=== PATIENT | male | born 1950 | race Caucasian/White ===

== ENCOUNTER 2017-03-18 15:44 | Inpatient (IN) | payer MEDICARE ==
[~2017-03-18] VITALS: Ht 175.3 cm; Wt 55.9 kg
[~2017-03-18 15:44] MED LIST: ATOR10TA9 PO
[2017-03-18] MEDS ORDERED: SODIUM CHLORIDE FLUSH 10ML SYR IVF ONE (16:00)
[2017-03-18] MEDS ORDERED: SODIUM CHLORIDE 0.9% 1,000ML IVBOLUS ONE (16:00)
[2017-03-18] MEDS ORDERED: SODIUM CHLORIDE 0.9% 1,000 ML IV ONE (16:20)
[2017-03-18 16:33] LABS: BLOOD UREA NITROGEN 10 mg/dL (7-18)
[2017-03-18 16:47] LABS: ASPARTATE AMINO TRANSFERASE 521 U/L (15-37)
[2017-03-18] MEDS ORDERED: POLY17PO5 PO (16:55)
[2017-03-18 17:18] LABS: DIFF TOTAL CELLS COUNTED 100 CELL DIFF
[2017-03-18 17:25] LABS: ANISOCYTOSIS 1+
[2017-03-18 17:27] LABS: POIKILOCYTOSIS 1+; TARGET CELLS 1+
[2017-03-18 17:28] LABS: STOMATOCYTES 1+
[2017-03-18 17:29] LABS: VERIFY COUNTS? YES
[2017-03-18] MEDS: SODIUM CHLORIDE 0.9% 1,000 ML IV SCH (17:42)
[2017-03-18] MEDS ORDERED: LABETALOL 5MG/ML 40ML VIAL IVPush PRN (18:00)
[2017-03-18] MEDS ORDERED: ENOXAPARIN 40 MG/0.4 ML SQ SCH (18:00)
[2017-03-18] MEDS ORDERED: METOCLOPRAMIDE 5 MG/ML, 2ML IVPush PRN (18:00)
[2017-03-18] MEDS ORDERED: BISACODYL 10 MG SUPP PR PRN (18:00)
[2017-03-18] MEDS ORDERED: morphine SULFATE 10 MG/ML, 1ML IVPush PRN (18:00)
[2017-03-18] MEDS ORDERED: PROMETHAZINE 25 MG/ML, 1ML IM PRN (18:00)
[2017-03-18] MEDS ORDERED: ONDANSETRON 2MG/ML, 2ML IVPush PRN (18:00)
[2017-03-18] MEDS ORDERED: OMNIPAQUE 350 MG/ML, 100ML BOTTLE ONE (18:19)
[2017-03-18 20:32] VITALS: BP 171/91
[2017-03-19 00:58] VITALS: BP 134/77
[2017-03-19] MEDS: SODIUM CHLORIDE 0.9% 1,000 ML IV SCH (05:57)
[2017-03-19 06:28] LABS: ASPARTATE AMINO TRANSFERASE 432 U/L (15-37); BLOOD UREA NITROGEN 9 mg/dL (7-18)
[2017-03-19 06:38] LABS: DIFF TOTAL CELLS COUNTED 100 CELL DIFF
[2017-03-19 07:03] LABS: VERIFY COUNTS? YES
[2017-03-19 07:04] LABS: ANISOCYTOSIS 1+; TARGET CELLS 1+
[2017-03-19 08:30] VITALS: BP 130/72
[2017-03-19 13:52] VITALS: BP 138/73
[2017-03-19] MEDS ORDERED: PNEUMOCOCCAL 23 VACCINE IM-VACC ONE (15:30)
== END 2017-03-19 16:00 | disposition home or self-care (01) | DRG 435 ==
LOC: ED 16:19 → EDIP 16:56 → 3NE 18:27
PROVIDERS: ADMIT Internal Medicine; ATTEND Internal Medicine
DX: C25.9 Malignant neoplasm of pancreas, unspecified (principal); K83.1 Obstruction of bile duct; K85.90 Acute pancreatitis without necrosis or infection, unspecified; E87.1 Hypo-osmolality and hyponatremia; D75.89 Other specified diseases of blood and blood-forming organs; E78.00 Pure hypercholesterolemia, unspecified; E78.5 Hyperlipidemia, unspecified; F12.90 Cannabis use, unspecified, uncomplicated; G89.29 Other chronic pain; M54.9 Dorsalgia, unspecified; L28.0 Lichen simplex chronicus; F10.20 Alcohol dependence, uncomplicated; R74.8 Abnormal levels of other serum enzymes; R74.0 Nonspecific elevation of levels of transaminase and lactic acid dehydrogenase [LDH]; I10 Essential (primary) hypertension; Y90.9 Presence of alcohol in blood, level not specified; K59.09 Other constipation; K82.8 Other specified diseases of gallbladder; K86.89 Other specified diseases of pancreas; Z80.0 Family history of malignant neoplasm of digestive organs; Z82.49 Family history of ischemic heart disease and other diseases of the circulatory system; Z87.891 Personal history of nicotine dependence; Z88.8 Allergy status to other drugs, medicaments and biological substances; Z79.899 Other long term (current) drug therapy
CPT/HCPCS: 36415; 74178; 80053; 81003; 82150; 83690; 83735; 84100; 85025; 85610; 90732; 96360; Q9967; J7030

== ENCOUNTER 2017-03-25 05:39 | Day surgery (SDC) | payer MEDICARE ==
[~2017-03-25] VITALS: Ht 175.3 cm; Wt 66.4 kg
[~2017-03-25 05:39] MED LIST changes: +POLY17PO5 PO
[2017-03-25] MEDS ORDERED: LACTATED RINGERS 1,000 ML IV SCH (06:14)
[2017-03-25 06:17] VITALS: BP 118/75
[2017-03-25] MEDS ORDERED: CHLORHEXIDINE MOUTHWASH 15 ML UDC ONE (06:48)
[2017-03-25] MEDS ORDERED: PIPERACILLIN/TAZO/PMX 3.375GM 50 ML ONE (07:09)
[2017-03-25 07:19] LABS: BLOOD UREA NITROGEN 9 mg/dL (7-18)
[2017-03-25] MEDS ORDERED: FENTANYL PF 100 MCG/2ML IV PRN (07:30)
[2017-03-25] MEDS ORDERED: METOCLOPRAMIDE 5 MG/ML, 2ML IV PRN (07:30)
[2017-03-25] MEDS ORDERED: ONDANSETRON 2MG/ML, 2ML IVPush PRN (07:30)
[2017-03-25] MEDS ORDERED: PROMETHAZINE 25 MG/ML, 1ML IV PRN (07:30)
[2017-03-25 07:35] LABS: ASPARTATE AMINO TRANSFERASE 238 U/L (15-37)
[2017-03-25] MEDS ORDERED: PROPOFOL 10 MG/ML, 20ML ONE (07:48)
[2017-03-25] MEDS ORDERED: ROCURONIUM 10 MG/ML ONE (07:48)
[2017-03-25] MEDS ORDERED: SUCCINYLCHOLINE 20 MG/ML, 10ML ONE (07:48)
[2017-03-25] MEDS ORDERED: OMNIPAQUE 350 MG/ML, 50 ML BOTTLE ONE (08:47)
[2017-03-25] MEDS ORDERED: FENTANYL PF 100 MCG/2ML ONE (09:43)
[2017-03-25] MEDS ORDERED: FENTANYL PF 100 MCG/2ML IV ONE (10:00)
[2017-03-25] MEDS ORDERED: OXYcodone/APAP 5/325MG TABLET ONE (10:22)
[2017-03-25] MEDS ORDERED: OXYcodone/APAP 5/325MG TABLET PO ONE (10:30)
== END 2017-03-25 11:00 | disposition home or self-care (01) ==
LOC: OUT 05:39
PROVIDERS: ATTEND Internal Medicine Gastroenterology
DX: C25.0 Malignant neoplasm of head of pancreas (principal); K83.1 Obstruction of bile duct; K31.7 Polyp of stomach and duodenum; K26.9 Duodenal ulcer, unspecified as acute or chronic, without hemorrhage or perforation; K29.50 Unspecified chronic gastritis without bleeding; I10 Essential (primary) hypertension; Z88.3 Allergy status to other anti-infective agents; Z88.8 Allergy status to other drugs, medicaments and biological substances; F12.10 Cannabis abuse, uncomplicated; Z87.891 Personal history of nicotine dependence; Z98.890 Other specified postprocedural states; Z72.89 Other problems related to lifestyle
CPT/HCPCS: 36415; 43238; 43239; 43251; 43274; 74328; 80053; 88172; 88173; 88305; 88307; 93005; C1769; C1894; C2625; J0330; J2543; J2704; J3010; J7120; Q9967

== ENCOUNTER → 2017-04-08 | Outpatient (CLI) | payer MEDICARE | END | disposition home or self-care (01) | LOC: PETCFH 08:44 | PROVIDERS: ATTEND Internal Medicine Hematology & Oncology | DX: C25.3 Malignant neoplasm of pancreatic duct (principal) | CPT/HCPCS: 78815; A9552 ==

== ENCOUNTER 2017-08-02 16:37 | Inpatient (IN) | payer MEDICARE ==
[~2017-08-02] VITALS: Ht 175.3 cm; Wt 58.9 kg
[2017-08-02] MEDS ORDERED: SODIUM CHLORIDE 0.9% 1,000 ML IV ONE (16:59)
[2017-08-02] MEDS ORDERED: SODIUM CHLORIDE 0.9% 1,000ML IVBOLUS ONE (17:00)
[2017-08-02 17:33] LABS: HEMATOCRIT 31.6 % (39.2-51.8); HEMOGLOBIN 10.6 g/dL (13.7-18.0)
[2017-08-02 17:43] LABS: ASPARTATE AMINO TRANSFERASE 158 U/L (15-37); BLOOD UREA NITROGEN 9 mg/dL (7-18)
[2017-08-02] MEDS ORDERED: PIPERACILLIN/TAZO/PMX 3.375GM 50 ML IV ONE (19:00)
[2017-08-02] MEDS ORDERED: PIPERACILLIN/TAZO/PMX 3.375GM 50 ML ONE (19:21)
[2017-08-02] MEDS ORDERED: OXYC5CAP2 PO (19:33)
[2017-08-02] MEDS ORDERED: ONDA4TAB10 PO (19:33)
[2017-08-02] MEDS ORDERED: ONDANSETRON 2MG/ML, 2ML IVPush PRN (20:00)
[2017-08-02] MEDS ORDERED: OXYcodone IR 5MG TABLET PO PRN (20:00)
[2017-08-02] MEDS: CIPROFLOXACIN/PMX 400MG/200ML 200 ML IV SCH (22:39)
[2017-08-02] MEDS: LACTATED RINGERS 1,000 ML IV SCH (22:40)
[2017-08-02 22:48] VITALS: BP 157/86
[2017-08-02] MEDS: ACETAMINOPHEN 325 MG TABLET PO PRN (23:21)
[2017-08-02] MEDS ORDERED: OMEP20TA62 PO (23:40)
[2017-08-03 02:53] VITALS: BP 143/73
[2017-08-03 04:36] LABS: HEMATOCRIT 27.8 % (39.2-51.8); HEMOGLOBIN 9.5 g/dL (13.7-18.0); WHITE BLOOD COUNT 5.1 x10^3/uL (3.4-10)
[2017-08-03 04:43] LABS: ASPARTATE AMINO TRANSFERASE 96 U/L (15-37); BLOOD UREA NITROGEN 8 mg/dL (7-18)
[2017-08-03] MEDS: POTASSIUM CHLORIDE 20 MEQ TAB.ER.PRT PO SCH ×2 (06:10→12:08)
[2017-08-03 07:24] VITALS: BP 158/89
[2017-08-03] MEDS: LACTATED RINGERS 1,000 ML IV SCH ×3 (08:58→22:22)
[2017-08-03] MEDS ORDERED: POLYETHYLENE GLYCOL 17 GM PACKET PO ONE (09:00)
[2017-08-03] MEDS: OMEPRAZOLE 20 MG CAPSULE.DR PO SCH (12:08)
[2017-08-03] MEDS: CIPROFLOXACIN/PMX 400MG/200ML 200 ML IV SCH (12:52)
[2017-08-03 13:16] VITALS: BP 160/95
[2017-08-03] MEDS: ACETAMINOPHEN 325 MG TABLET PO PRN (20:35)
[2017-08-03 20:49] VITALS: BP_SYST 164; BP_SYST 168; BP_DIAS 86; BP_DIAS 90
[2017-08-04 00:54] VITALS: BP 162/90
[2017-08-04] MEDS: CIPROFLOXACIN/PMX 400MG/200ML 200 ML IV SCH ×2 (00:57→14:41)
[2017-08-04 05:06] LABS: BLOOD UREA NITROGEN 7 mg/dL (7-18); HEMATOCRIT 29.5 % (39.2-51.8); HEMOGLOBIN 9.9 g/dL (13.7-18.0); WHITE BLOOD COUNT 4.6 x10^3/uL (3.4-10)
[2017-08-04 05:10] LABS: ASPARTATE AMINO TRANSFERASE 49 U/L (15-37)
[2017-08-04 06:14] LABS: DIFF TOTAL CELLS COUNTED 100 CELL DIFF
[2017-08-04 06:17] LABS: VERIFY COUNTS? YES
[2017-08-04 06:18] LABS: ANISOCYTOSIS 1+; LARGE PLATELETS 1+; POLYCHROMASIA 1+
[2017-08-04 07:45] VITALS: BP 162/86
[2017-08-04] MEDS: OMEPRAZOLE 20 MG CAPSULE.DR PO SCH (07:50)
[2017-08-04] MEDS: LACTATED RINGERS 1,000 ML IV SCH (07:53)
[2017-08-04] MEDS: ACETAMINOPHEN 325 MG TABLET PO PRN (08:01)
[2017-08-04] MEDS ORDERED: PROPOFOL 10 MG/ML, 20ML ONE (12:34)
[2017-08-04] MEDS ORDERED: FENTANYL PF 100 MCG/2ML ONE (12:34)
[2017-08-04] MEDS ORDERED: SUCCINYLCHOLINE 20 MG/ML, 10ML ONE (12:34)
[2017-08-04] MEDS ORDERED: MIDAZOLAM 1 MG/ML, 2ML ONE (12:34)
[2017-08-04] MEDS ORDERED: DEXAMETHASONE 4 MG/ML, 1ML ONE (12:36)
[2017-08-04] MEDS ORDERED: LIDOCAINE GEL 2%, 5ML ONE (12:36)
[2017-08-04] MEDS ORDERED: ONDANSETRON 2MG/ML, 2ML ONE (12:45)
[2017-08-04] MEDS ORDERED: PROMETHAZINE 25 MG/ML, 1ML IV PRN (14:00)
[2017-08-04] MEDS ORDERED: MEPERIDINE/PF 25MG/0.5ML IVPush PRN (14:00)
[2017-08-04] MEDS ORDERED: OXYcodone 5 MG/5 ML ORAL.SOL UDC PO PRN (14:00)
[2017-08-04] MEDS ORDERED: ACETAMINOPHEN 325 MG TABLET PO PRN (14:00)
[2017-08-04] MEDS ORDERED: ONDANSETRON 2MG/ML, 2ML IVPush PRN (14:00)
[2017-08-04] MEDS ORDERED: LABETALOL 5MG/ML, 20ML IV PRN (14:00)
[2017-08-04] MEDS ORDERED: MIDAZOLAM 1 MG/ML, 2ML IV PRN (14:00)
[2017-08-04] MEDS ORDERED: FENTANYL PF 100 MCG/2ML IV PRN (14:00)
[2017-08-04] MEDS ORDERED: EPHEDRINE 50 MG/ML, 1ML IVPush PRN (14:00)
[2017-08-04] MEDS ORDERED: HYDROmorphone 1 MG/ML, 1ML IV PRN (14:00)
[2017-08-04 14:41] VITALS: BP 135/74
[2017-08-04] MEDS ORDERED: OMNIPAQUE 350 MG/ML, 50 ML BOTTLE ONE (15:23)
== END 2017-08-04 18:14 | disposition home or self-care (01) | DRG 871 ==
LOC: ED 18:09 → SUATTDRO 19:18 → EDIP 19:32 → 3NW 20:50
PROVIDERS: ADMIT Hospitalist; ATTEND Hospitalist
PROC: BF101ZZ Fluoroscopy of Bile Ducts using Low Osmolar Contrast (ICD-10-PCS; 2017-08-04)
PROC: 0FC98ZZ Extirpation of Matter from Common Bile Duct, Via Natural or Artificial Opening Endoscopic (ICD-10-PCS; 2017-08-04)
PROC: 0F798ZZ Dilation of Common Bile Duct, Via Natural or Artificial Opening Endoscopic (ICD-10-PCS; principal; 2017-08-04 11:45)
DX: A41.9 Sepsis, unspecified organism (principal); E43 Unspecified severe protein-calorie malnutrition; C25.0 Malignant neoplasm of head of pancreas; E87.1 Hypo-osmolality and hyponatremia; K80.31 Calculus of bile duct with cholangitis, unspecified, with obstruction; D64.9 Anemia, unspecified; Z68.1 Body mass index [BMI] 19.9 or less, adult; K72.90 Hepatic failure, unspecified without coma; R65.20 Severe sepsis without septic shock; E87.6 Hypokalemia; E78.5 Hyperlipidemia, unspecified; Z88.8 Allergy status to other drugs, medicaments and biological substances; F10.21 Alcohol dependence, in remission; F12.90 Cannabis use, unspecified, uncomplicated; I10 Essential (primary) hypertension; Z66 Do not resuscitate; Z80.0 Family history of malignant neoplasm of digestive organs; Z82.49 Family history of ischemic heart disease and other diseases of the circulatory system; Z87.891 Personal history of nicotine dependence; Z92.21 Personal history of antineoplastic chemotherapy
CPT/HCPCS: 36415; 74181; 74328; 76700; 80053; 81003; 83605; 83690; 83735; 84100; 84145; 85025; 87040; 93005; 96360; 96361; J0744; J1100; J2250; J2405; J2543; J2704; J3010; Q9967; C1769; J0330; J7030; J7120

== ENCOUNTER → 2017-09-07 | Outpatient (CLI) | payer MEDICARE ==
[~2017-09-07] MED LIST changes: +OMEP20TA62 PO; +OMNIPAQUE 350 MG/ML, 100ML BOTTLE ONE; +ONDA4TAB10 PO; +OXYC5CAP2 PO
== END | disposition home or self-care (01) ==
LOC: CFH 09:31
PROVIDERS: ATTEND Internal Medicine Hematology & Oncology
DX: K82.8 Other specified diseases of gallbladder (principal); C25.9 Malignant neoplasm of pancreas, unspecified; M51.44 Schmorl's nodes, thoracic region; M89.9 Disorder of bone, unspecified
CPT/HCPCS: 71260; 74177; Q9967

== ENCOUNTER 2018-08-30 11:24 | Emergency (ER) | payer MEDICARE ==
[~2018-08-30] VITALS: Ht 175.3 cm; Wt 61.6 kg
[~2018-08-30 11:24] MED LIST changes: -OMNIPAQUE 350 MG/ML, 100ML BOTTLE ONE
[2018-08-30 12:58] LABS: ALBUMIN 2.1 g/dL (3.4-5.0); ANION GAP 8 mmol/L (5-15); CALCIUM 7.4 mg/dL (8.5-10.1); CHLORIDE 104 mmol/L (98-107)
[2018-08-30 12:59] LABS: MEAN CORPUSCULAR HEMOGLOBIN 34.1 pg (27.5-34.5); MEAN CORPUSCULAR VOLUME 100.5 fL (81-97); MEAN PLATELET VOLUME 7.5 fL (7.4-10.4); PLATELET COUNT 385 x10^3/uL (130-400); RED BLOOD COUNT 2.75 x10^6/uL (4.38-5.82); RED CELL DISTRIBUTION WIDTH 19.1 % (9.4-14.8)
[2018-08-30] MEDS ORDERED: ZOLP-413 PO (13:00)
[2018-08-30 13:01] LABS: ALANINE AMINOTRANSFERASE 25 U/L (12-78); CREATININE 0.56 mg/dL (0.7-1.3)
[2018-08-30 13:05] LABS: ALKALINE PHOSPHATASE 124 U/L (45-117); BILIRUBIN,TOTAL 0.4 mg/dL (0.2-1.0)
[2018-08-30] MEDS ORDERED: OXYcodone IR 5MG TABLET ONE (13:22)
[2018-08-30] MEDS ORDERED: OXYcodone IR 5MG TABLET PO ONE (13:30)
[2018-08-30 13:37] LABS: MD YES
[2018-08-30 13:41] LABS: ANISOCYTOSIS 1+; BAND#(MANUAL) 0.04 x10^3/uL; BANDS%(MANUAL) 2 % (0-7); EOS#(MANUAL) 0.04 x10^3/uL (0.0-0.4); EOS% (MANUAL) 2 % (1-7); HYPOCHROMIA 1+; LYMPH#(MANUAL) 0.29 x10^3/uL (1-3.4); LYMPHS% (MANUAL) 14 % (22-44); MONOS#(MANUAL) 0.06 x10^3/uL (0.3-2.7); MONOS% (MANUAL) 3 % (2-9); SEG#(MANUAL) 1.66 x10^3/uL (1.8-6.8); SEGS% (MANUAL) 79 % (42-75)
[2018-08-30 13:42] LABS: <PLATELET ESTIMATE> ADEQUATE; <PLT MORPHOLOGY> NORMAL PLT MORPH
[2018-08-30 14:57] VITALS: BP 108/67
== END 2018-08-30 15:16 | disposition home or self-care (01) ==
LOC: ED 12:55
DX: C25.3 Malignant neoplasm of pancreatic duct (principal); E77.8 Other disorders of glycoprotein metabolism; E88.09 Other disorders of plasma-protein metabolism, not elsewhere classified
CPT/HCPCS: 36415; 71045; 80053; 83880; 85025; 93005; 93970; 99285